=== PATIENT | male | born 1970 | race Caucasian/White ===

== ENCOUNTER → 2019-01-11 | Outpatient (CLI) | payer OTHER | END | disposition home or self-care (01) | LOC: CFH 07:56 | PROVIDERS: ATTEND Nurse Practitioner Family | DX: M51.16 Intervertebral disc disorders with radiculopathy, lumbar region (principal); M48.061 Spinal stenosis, lumbar region without neurogenic claudication; M51.17 Intervertebral disc disorders with radiculopathy, lumbosacral region; M48.07 Spinal stenosis, lumbosacral region | CPT/HCPCS: 72148 ==

== ENCOUNTER 2019-10-19 15:04 | Emergency (ER) | payer OTHER ==
[~2019-10-19] VITALS: Ht 175.3 cm; Wt 104.6 kg
[2019-10-19 15:18] VITALS: BP 144/87
[2019-10-19] MEDS ORDERED: PROPARACAINE OPHTH 0.5%, 15ML ONE (15:39)
[2019-10-19] MEDS ORDERED: FLUORESCEIN OPHTHALMIC 1 MG STRIP ONE (15:39)
--- NOTE | 2019-10-19 16:10 | NUR ---
Patient/Caregiver given discharge instructions and they have confirmed that they understand the instructions. Patient ambulatory with steady gait.
== END 2019-10-19 16:45 | disposition home or self-care (01) ==
LOC: ED 16:33
DX: T15.02XA Foreign body in cornea, left eye, initial encounter (principal); X58.XXXA Exposure to other specified factors, initial encounter; Y93.9 Activity, unspecified; Y92.89 Other specified places as the place of occurrence of the external cause; Y99.8 Other external cause status
CPT/HCPCS: 65222; 99284

== ENCOUNTER 2021-06-15 12:05 | Emergency (ER) | payer OTHER ==
[~2021-06-15] VITALS: Ht 175.3 cm; Wt 107.0 kg
[2021-06-15 12:35] VITALS: BP 127/95
--- NOTE | 2021-06-15 13:56 | NUR ---
[employer]: PT AMBULATORY TO ROOM FROM LOBBY.
--- NOTE | 2021-06-15 16:46 | NUR ---
Patient given discharge instructions and RX, they have confirmed that they understand the instructions. Patient ambulatory with steady gait.
== END 2021-06-15 16:47 | disposition home or self-care (01) ==
LOC: ED 14:25
DX: S41.112A Laceration without foreign body of left upper arm, initial encounter (principal); S46.121A Laceration of muscle, fascia and tendon of long head of biceps, right arm, initial encounter; W01.0XXA Fall on same level from slipping, tripping and stumbling without subsequent striking against object, initial encounter; Y93.89 Activity, other specified; Y92.89 Other specified places as the place of occurrence of the external cause; Y99.8 Other external cause status
CPT/HCPCS: 99284